=== PATIENT | female | born 1980 | race Asian ===

== ENCOUNTER 2018-11-18 09:04 | Day surgery (SDC) | payer MEDICAID, OTHER ==
[2018-11-15 17:36] VITALS: BMI 23.8
[2018-11-18] VITALS (12 sets, daily range): BP systolic 93–118; BP diastolic 50–72; PULSE 50–59; RESP 11–18; Ht 157.5 cm; Wt 58.2 kg
[~2018-11-18] VITALS: Ht 157.5 cm; Wt 58.2 kg
[~2018-11-18 09:04] MED LIST: BALANCED SALT SOLN 15 ML OPH IRRIG ONE; DOCU-144 PO; FERR-31 PO; GLYB2.5T2 PO; GLYB5TAB3 PO; MITOMYCIN 5 MG INJ OP ONE; PRENAT PO
[2018-11-18] MEDS ORDERED: MET25 PO (10:08)
[2018-11-18] MEDS ORDERED: FOLI-49 PO (10:09)
[2018-11-18] MEDS ORDERED: CLB05O30 TOP (10:09)
--- NOTE | 2018-11-18 11:15 | PREAC ---
Date/Time of Note Date/Time of Note DATE: 11/18/18 TIME: 11:13 Anesthesia Eval and Record Evaluation Time Pre-Procedure Interview DATE: 11/18/18 TIME: 11:13 Age 38 Sex female NPO: 8 hrs Preoperative diagnosis ptygrium Planned procedure excision of ptygrium Past Medical History Past Medical History: Includes Musculoskeletal: Other (psoriasis ) Surgery & Anesthesia Issues No known issue Meds Anticoagulation: No Beta Hernando within 24 hr: No Reason Beta Hernando not given: Pt. not on B-Hernando Reported Medications Clobetasol Priopionate* (Temovate*) 0.05%-30 GM Oint Tube, 1 APPLIC TOP BID, #1 TUB 11/18/18 Folic Acid* (Folic Acid*) 1 Mg Tablet, 1 MG PO DAILY, TAB 11/18/18 Methotrexate* (Methotrexate*) 2.5 Mg Tab, 10 MG PO EVERY SUNDAY, TAB 11/18/18 Discontinued Reported Medications Glyburide* (Glyburide*) 5 Mg Tablet, 5 MG PO WITH DINNER, #60 TAB 11/11/15 Glyburide* (Glyburide*) 2.5 Mg Tablet, 2.5 MG PO DAILY, #30 TAB 11/11/15 Docusate Sodium* (Colace*) 100 Mg Capsule, 100 MG PO DAILY, #30 CAP 11/11/15 Ferrous Sulfate (Iron Supplement) 1 Tab Tablet, 1 TAB PO DAILY, TAB 11/11/15 Multivit/Min/Fol Ac/Iron/Pren* ( S*) 1 Tab Tab, 1 TAB PO DAILY, TAB 11/11/15 Meds reviewed: Yes Allergies Coded Allergies: No Known Allergy (Unverified , 11/18/18) Allergies Reviewed: Yes Labs/Studies Labs Reviewed: Reviewed by anesthesiologist test: Negative Pre-procedure Exam Last vitals Vital Signs Date Temp Pulse Resp B/P (MAP) Pulse Ox O2 O2 Flow FiO2 Time Delivery Rate 11/18/18 97.7 59 16 109/66 97 10:41 (80) Airway: Adequate mouth opening, Adequate thyromental dist Mallampati: Mallampati II Teeth: Normal Lung: Normal Heart: Normal ASA Physical Status ASA physical status: 2 Emergency: None Pre-operative Attestations Prior to commencing anesthesia and surgery, the patient was re-evaluated, there was verification of: *The patient's identity *The results of appropriate recent lab work and preoperative vital signs *The above evaluation not changing prior to induction *Anesthetic plan, risk benefits, alternative and complications discussed with patient/family; questions answered; patient/family understands, accepts and wishes to proceed. NATHAN CEE DO Nov 18, 2018 11:15
--- NOTE | 2018-11-18 11:19 | HPN ---
Date/Time of Note Date/Time of Note DATE: 11/18/18 TIME: 11:19 Interval H&P Admission Note Pt. seen H&P reviewed: No system changes CARLY BARTLETT MD Nov 18, 2018 11:19
[2018-11-18] MEDS ORDERED: LIDOCAINE 1% (MPF) 10 ML INJ ONE ×2 (11:22→11:44)
[2018-11-18] MEDS ORDERED: TOBRAMYCIN/DEXAMETH 3.5 GM OPH OINT ONE (11:29)
[2018-11-18] MEDS ORDERED: LIDOCAINE /PF 2% 10 ML AMPUL ONE (11:29)
[2018-11-18] MEDS ORDERED: PHENYLephrine 10% 5 ML OPH RIGHT EYE ONE (11:30)
[2018-11-18] MEDS ORDERED: MIDAZOLAM 1 MG/ML 2 ML INJ ONE ×2 (11:30→11:48)
[2018-11-18] MEDS ORDERED: LIDOCAINE 1% (MPF) 10 ML INJ INJ ONE (11:30)
[2018-11-18] MEDS ORDERED: FENTAnyl 50 MCG/ML VIAL ONE (11:30)
[2018-11-18] MEDS ORDERED: LIDOCAINE 1%/EPI (1:100,000) (MDV) 20 ML ONE (11:32)
[2018-11-18] MEDS ORDERED: LIDOCAINE 1.5%/EPI MPF (SDV) 30 ML VIAL INJ SCH (12:00)
[2018-11-18] MEDS ORDERED: TOBRAMYCIN/DEXAMETH 3.5 GM OPH OINT RIGHT EYE ONE (12:08)
[2018-11-18] MEDS ORDERED: KETOROLAC 30 MG INJ ONE (12:23)
--- NOTE | 2018-11-18 12:33 | SIPON ---
Date/Time of Note Date/Time of Note DATE: 11/18/18 TIME: 12:28 Operative Report Preoperative Diagnosis pterygium right eye Postoperative Diagnosis same Operation/Procedure Performed pterygium excision application of [facility] CLOSURE OF OP SITE WITH ADVANCEMENT FLAPS Surgeon see signature line land surveyor assistant NONE Anesthesia: MAC Estimated blood loss: none Transfusion Required none Specimen NONE Grafts/Implants none Complications none CARLY BARTLETT MD Nov 18, 2018 12:33
--- NOTE | 2018-11-18 12:37 | PAC ---
Date/Time of Note Date/Time of Note DATE: 11/18/18 TIME: 12:36 Post-Anesthesia Notes Post-Anesthesia Note Last documented vital signs Vital Signs Date Temp Pulse Resp B/P (MAP) Pulse Ox O2 O2 Flow FiO2 Time Delivery Rate 11/18/18 97.7 98 59 60 16 17 109/66 97 100 RA 10:41 122 (80) 116/ 8 72 Activity: WNL Respiratory function: WNL Cardiovascular function: WNL Mental status: Baseline Pain reasonably controlled: Yes Hydration appropriate: Yes Nausea/Vomiting absent: Yes MARI MERAZ Nov 18, 2018 12:37
--- NOTE | 2018-11-18 12:49 | OPR ---
DATE OF OPERATION: 11/18/2018 SURGEON: Shreya Dewey MD MACHINE CERAMIC COATER: None. ANESTHESIOLOGIST: PREOPERATIVE DIAGNOSIS: Pterygium, right eye. POSTOPERATIVE DIAGNOSIS: Pterygium, right eye. OPERATION: Excision of pterygium, right eye; application of mitomycin C; closure of defect with conj unctival advancement flaps. DESCRIPTION OF PROCEDURE: Following standard preparation and draping of the patient, a solid-blade l id speculum was placed for immobilization of the lids. A small amount of 2% Xylocaine with epinephri ne was injected beneath the body of the pterygium so as to elevate it from the underlying sclerae. A fter adequate local anesthesia was obtained, Kika scissors were simply used to make an incision a long the edges of the pterygium, amputating the body approximately 1 cm posterior to the limbus. At the limbus, the major portion of the tissue was simply excised using sharp scissors. Using a rotating isaías bur, all of the scar tissue on the cornea was removed down to clear cornea. At this point, bleeding points were secured with the heat cautery. Mitomycin C (0.2 mg/ml) was now applied to the limbal regions for three minutes. After three minutes, the eye was copiously irrigate d with balanced salt solution. A peritomy was now performed both superiorly and inferiorly and relax ing incisions made at approximately the 6 and 12 o'clock positions. The undermining conjunctiva was now pulled both superiorly and inferiorly so as to close the previously made defect from which the pt erygium had been removed. Sutures of interrupted 8-0 Vicryl were used and a bite of the underlying s clera was taken so as to ensure adequate maintenance of the flaps in a nonmovable position. Betadine 5% solution was placed on the eye, along with TobraDex ointment. A light pressure dressing was applied, and the patient returned to the recovery room in satisfactory condition. Dictated By: SHREYA DIOP/JANUARY Conf#: [id number] DID#: [id number]
[2018-11-18] MEDS ORDERED: HYDROCODONE/APAP (5/325) TAB PO ONE (13:30)
== END 2018-11-18 14:54 | disposition home or self-care (01) ==
LOC: SDS 09:04
PROVIDERS: ATTEND Ophthalmology
DX: H11.001 Unspecified pterygium of right eye (principal)
CPT/HCPCS: 65426; 84703; J1885; J2250; J3010; J9280; Z7512; Z7610